=== PATIENT | female | born 1960 | race Caucasian/White ===

== ENCOUNTER → 2020-08-12 12:25 | Outpatient (BNVA) | payer MEDICARE, SELFPAY | PROVIDERS: Referring Provider Family Medicine; Visit Provider Specialist | DX: G50.0 Trigeminal neuralgia (principal); Z87.891 Personal history of nicotine dependence | CPT/HCPCS: G0463 ==

== ENCOUNTER 2020-10-22 11:34 | Outpatient (CLI) | payer MEDICARE, MEDICAID, SELFPAY ==
[2020-10-22 14:39] LABS: Basophils % 0.6 %; Eosinophils # 0.3 10^3/uL (0.0-0.8); Eosinophils % 4.6 %; Hematocrit 38.9 % (37.0-47.0); Hemoglobin 12.4 g/dL (11.5-15.3); Lymphocytes # 1.9 10^3/uL (0.8-4.8); Lymphocytes % 30.5 %; Mean Corpuscular HGB Conc 31.9 g/dL (30.0-36.0); Mean Corpuscular Hemoglobin 30.7 pg (28.0-34.0); Mean Corpuscular Volume 96.3 fL (81-99); Mean Platelet Volume 10.2 fL (7.4-10.4); Monocytes # 0.6 10^3/uL (0.2-0.9); Monocytes % 9.6 %; Neutrophils # 3.46 10^3/uL (1.8-7.7); Neutrophils % 54.4 %; Nucleated Red Blood Cells % 0 %; Platelet Count 291 10^3/cmm (130-400); Red Blood Count 4.04 10^6/uL (4.1-5.3); Red Cell Distribution Width 12.4 % (12.1-15.1); White Blood Count 6.4 10^3/uL (4.0-10.0)
[2020-10-22 14:53] LABS: Alanine Aminotransferase 31 U/L (0-33); Albumin Level 4.4 g/dL (3.5-5.2); Alkaline Phosphatase 113 IU/L (35-105); Aspartate Amino Transferase 36 U/L (0-32); Blood Urea Nitrogen 13 mg/dL (6-20); Calcium 9.8 mg/dL (8.5-10.5); Carbon Dioxide 29 mmol/L (22-29); Chloride 101 mmol/L (98-107); Globulin 2.9 g/dL (1.3-4.6); Glomerular Filtration Rate 127.2 mL/min (90-130); Glucose 98 mg/dL (65-115); Osmolality Calculated 290 mOsm/kg (285-295); Sodium 140 mmol/L (136-145); Total Bilirubin 0.4 mg/dL (0.15-1.2); Total Protein 7.3 g/dL (6.6-8.7)
--- NOTE | 2020-10-24 12:28 | ONC CON_ITS ---
Dr. Marr New Patient Note Patient: Edmar Cifuentes Unit #: [id number]: 1960 Dicatated By: Sidney Marr M.D.Date of Visit: Oct 22, 2020 Onc MED New Patient/Consult Referring Physician: Xavi Cohen Chief Complaint: Breast cancer. History of Present Illness: This is a 59-year-old woman with grade 2 invasive ductal carcinoma of the right breast, stage IA (T2, pN0, M0), ER/AR positive and HER-2/caio negative. Oncotype was high risk, recurrence score 30. She was reported to be premenopausal by hormonal studies. She has a prior history of ductal carcinoma in situ of the right breast for which she underwent lobectomy and adjuvant radiation in 2002 followed by 5 years of adjuvant tamoxifen, completed in 2007. Her surveillance mammogram on 01/02/2020 was BI-RADS 0, incomplete. Findings included a new spiculated mass in the upper outer quadrant of the right breast measuring 3.5 x 1.5 x 1.5 cm. Her diagnostic mammogram was BI-RADS 4, suspicious. Targeted sonography showed a poorly defined hypoechoic mass measuring 1.4 x 1.3 x 1.9 cm at the 11 o'clock position of the right breast. There were no abnormal lymph nodes identified in the right axilla. Biopsy of the lesion on 02/21/2020 showed grade 2 invasive ductal carcinoma. It was reported to be ER positive at 50% and AR positive at 95%. It was negative for overexpression of HER-2/caio with amplification ratio by FISH of 1.18 with 1.77 HER-2 copies/cell. On 03/14/2020 she underwent bilateral mastectomy with right axillary sentinel lymph node biopsy. Pathology on the right breast showed grade 2 invasive ductal carcinoma measuring 2.4 cm in greatest diameter. There was no involvement in 1 axillary sentinel lymph node. Her Oncotype DX showed recurrence score of 30 corresponding to a 19% risk of distant recurrence at 9 years with adjuvant hormonal therapy. The predictive absolute benefit with adjuvant chemotherapy was > 15%. Her postoperative course was complicated by persistent seromas. During that time she also was found to have thyroid nodules, for which she underwent FNA biopsy on 05/14/2020. It apparently was nondiagnostic. She was then able to proceed with adjuvant chemotherapy with dose dense Adriamycin/cyclophosphamide, completing her 4th cycle on 07/10/2020. She then continued with weekly paclitaxel. Her 4th weekly infusion was delayed for 1 week due to mild transaminitis. Her week 5 treatment was then delayed due to an episode of acute paranoid ideation. She was able to complete her week 5 infusion on 09/15/2020. However, she has not received any further treatment due to difficulties with traveling and other social issues. She is seen now for further management of her breast cancer. She complains that she is tired and that she sleeps a lot. She does just very minimal work activity. Her ECOG score is 2. She has good appetite. She has had a weight loss of about 30 pounds, but at least some component of that has been intentional. She has not had fever and she does not complain of hot flashes, but she does have some night sweating. She reports having a lot of allergy related sinus symptoms and she has associated cough. She does not complain of shortness of breath or chest pain. She still has occasional episodes of nausea/vomiting. She gets heartburn if she overeats. She has occasional constipation. She is having urinary frequency and nocturia. She has fairly longstanding musculoskeletal pain. The most significant is in her fingers, wrists, knees, ankles, and feet. She sometimes has headache. She occasionally has dizziness. She has neuropathy in her hands and feet. She has posttraumatic stress syndrome and she has anxiety and depression. Past Medical History: Ms. Cifuentes's medical history consists of anxiety/depression, [place] syndrome, fibromyalgia, gastroesophageal reflux disease, hyperlipidemia, hypertension, nephrolithiasis, osteoporosis, peripheral neuropathy, PTSD, trigeminal neuralgia, and vitamin D deficiency. Past Surgical History: Ms. Cifuentes's surgical/procedural history consists of section in 1982, 1985, and 1986, FNA biopsy of thyroid nodule in 2019, bilateral mastectomy with right axillary sentinel lymph node biopsy in 2019, cholecystectomy in 2012, surgery for kidney stone removal in 2010, left breast lumpectomy in 2003, right breast lumpectomy for DCIS in 2002, and hysterectomy with unilateral oophorectomy in 1987. Medications: hydroCHLOROthiazide 1 (25 mg) Tablet Oral daily, Lopressor 1 (50 mg) Tablet Oral daily, Mouthwash Compounding Base Liquid Oral, Sertraline HCl 1 (50 mg) Tablet Oral daily, Simvastatin 1 (20 mg) Tablet Oral daily, Zofran 1 (8 mg) Tablet Oral q 6 hours. Allergies: Benicar HCT, busPIRone HCl, CeleXA, Cipro, clonazePAM, Codeine Sulfate, Cymbalta, Dexilant, Diclofenac, Dilantin, Elavil, Evista, latex, milk, Neurontin, NIFEdipine, Penicillins, Percocet, Prochlorperazine Maleate, Reglan, Sulfa Antibiotics, traZODone HCl, Voltaren, and Zithromax. Social History: Ms. Cifuentes is and she is a disabled. Ms. Cifuentes has never smoked. She has no history of drinking. She is a non-smoker. She has only rare alcohol use. Family History: Ms. Cifuentes's mother at age 49: Breast Cancer. Ms. Cifuentes's father at age 87: Unknown Cancer. Ms. Cifuentes has 1 brother who is : breast cancer. She has 1 sister who is : breast cancer. Father at age 87, reportedly of breast cancer. Mother of breast cancer at age 49. A brother and his twin sister both of breast cancer, he at age 33 and she at age 30. She indicates that on her mother side of the family there have been 65 deaths to breast cancer spanning 5 generations. She has 3 children, ages 34, 35, and 37 who are all still in good health. None have had genetic screening yet. Review Of Symptoms: Constitutional - She has been feeling very tired. She says she sleeps a lot. She is able to do only minimal work activity. Her appetite is been okay, but she has had a 30 pound weight loss, at least some of which has been intentional. She has not had fever. She does not complain of hot flashes, but she does have some sweating at night. ECOG score is 2, Eyes - No change in vision, ENMT - No hearing loss or tinnitus. She has some allergy related sinus symptoms. No mouth sores. No sore throat or difficulty swallowing, Hematologic/Lymphatic - She has easy bruising, Respiratory - No shortness of breath. She has cough, also attributable to allergies. No pleuritic pain or hemoptysis, Cardiovascular - No angina pain. No palpitations, Gastrointestinal - She still has occasional nausea and vomiting. She has heartburn with overeating. She has occasional constipation. No blood in the stool or black stools, Genitourinary (F) - No dysuria or hematuria. She has urinary frequency and nocturia. No urgency or incontinence, Musculoskeletal - She has had ongoing problems with musculoskeletal pain for the past 10 years. The most significant is her fingers, wrists, knees, ankles, and feet, Integumentary - No skin rash or other skin problems, Neurologic - She sometimes has headache. She occasionally has dizziness. She has neuropathy in her hands and more so in her feet, Psychiatric - She has posttraumatic stress disorder. She has anxiety and depression. She does not sleep well at night. Vital Signs: Performed on Oct 22, 2020 13:17: 9, 9, 35.02 (HIGH), 2.07 sq.m, 66 in, 93 % (LOW), 67 /min, 18 /min, 115/72 mm(hg), 99.7 F (HIGH), and 217 lbs (HIGH). Physical Examination: Constitutional - She looks pretty good generally, Eyes - Sclerae nonicteric. Conjunctivae clear, ENMT - No lesions noted in the oral cavity, Neck - No mass or thyromegaly, Hematologic/Lymphatic - No cervical or clavicular adenopathy, Respiratory - Lungs are clear with good air movement bilaterally, Cardiovascular - Heart rhythm is regular. There is no murmur, gallop, or rub noted, Breasts - The mastectomy incisions appear well-healed bilaterally. There appears to be some small residual fluid collection in the medial aspect of the left mastectomy incision. There are no chest wall lesions noted. There is no axillary adenopathy, Abdomen - Soft and non-tender. Liver and spleen are not enlarged. There is no abdominal mass or ascites noted and there is no inguinal adenopathy, Back/Spine - No spine or CVA tenderness noted, Extremities - No edema. Pedal pulses are palpable bilaterally, Integumentary - No rashes. No suspicious skin lesions noted, Neurologic - No focal neurologic deficits noted. Problem List: 1. Grade 2 invasive ductal carcinoma of the right breast, stage IA (T2, pN0, M0), ER/AR positive and HER-2/caio negative. Oncotype was high risk, recurrence score 30. She was reported to be premenopausal by hormonal studies. She underwent bilateral mastectomy and right axillary sentinel lymph node biopsy on 03/14/2020. 2. She had history of ductal carcinoma in situ of the right breast, treated in 2002 with lumpectomy and adjuvant radiation followed by 5 years of adjuvant hormonal therapy with tamoxifen, completed in 2007. 3. 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 4. She was found to have a suspicious thyroid nodule. Initial FNA biopsy was nondiagnostic. 5. Hypertension. 6. Hyperlipidemia. 7. GERD. 8. Peripheral neuropathy. 9. Trigeminal neuralgia. 10. Fibromyalgia. 11. Osteoporosis. 12. Vitamin D deficiency. 13. History of nephrolithiasis. 14. PTSD with anxiety and depression. Problems Addressed with this Encounter and Plan: 1. Patient with grade 2 invasive ductal carcinoma of the right breast, stage IA (T2, pN0, M0), ER/AR positive and HER-2/caio negative. Oncotype was high risk, recurrence score 30. She was reported to be premenopausal by hormonal studies. She underwent bilateral mastectomy and right axillary sentinel lymph node biopsy on 03/14/2020. Her postoperative course was complicated by recurrent seroma. With high risk Oncotype DX, she then began adjuvant chemotherapy with dose dense Adriamycin/cyclophosphamide. She completed her 4 cycles from 05/23/2020 through 07/10/2020. She began her first of 12 planned weekly cycles of paclitaxel on 07/29/2020. Her week for treatment was delayed due to transaminitis. Her week 5 treatment, completed on 09/15/2020, had been delayed due to an episode of acute paranoia. She has not had any further chemotherapy due to difficulty with traveling another social issues. Despite the delays in her treatment, she is interested in completing her full course of chemotherapy. As her toxicity has been acceptable, she will return tomorrow for her week 6 paclitaxel. It will be administered at the same dosage. She will then continue treatment weekly. I will address the issue of her adjuvant endocrine therapy when she has completed chemotherapy. 2. She was found to have a suspicious thyroid nodule. The initial FNA biopsy was nondiagnostic. It will require ongoing follow-up. Signed By: Sidney Marr M.D. <<Signature on File>>
== END 2020-10-22 11:35 | disposition home or self-care (01) ==
PROVIDERS: Visit Provider Internal Medicine Medical Oncology
DX: C50.411 Malignant neoplasm of upper-outer quadrant of right female breast (principal); Z17.0 Estrogen receptor positive status [ER+]; Z79.899 Other long term (current) drug therapy; E04.1 Nontoxic single thyroid nodule; Z90.13 Acquired absence of bilateral breasts and nipples; Q85.8 Other phakomatoses, not elsewhere classified; I10 Essential (primary) hypertension; E78.5 Hyperlipidemia, unspecified; K21.9 Gastro-esophageal reflux disease without esophagitis; Z86.000 Personal history of in-situ neoplasm of breast
CPT/HCPCS: 36415; 80053; 85025; 99205

== ENCOUNTER 2020-11-13 11:30 | Outpatient (RCR) | payer MEDICARE, MEDICAID, SELFPAY ==
[2020-10-23] MEDS: sodium chloride 0.9% 250 ML 75 ML IV (08:27)
[2020-10-23] MEDS: famotidine 20 mg/2 mL INJ IVP (08:27)
[2020-10-23] MEDS: ondansetron 2 mg/ML SDV 2 mL 8 MG IV (08:29)
[2020-10-23] MEDS: acetaminophen 325 mg Tablet 650 MG PO (08:29)
[2020-10-23] MEDS: diphenhydrAMINE 50 mg/mL SDV 1mL 25 MG IV (08:32)
[2020-10-23] MEDS: sodium chloride 0.9% (100 ml) 100 ML 400 ML (08:32)
[2020-10-23] MEDS: fosaprepitant 150 MG in sodium chloride 0.9% 150 ML 300 MG IV (09:25)
[2020-10-30 12:56] LABS: Basophils % 0.2 %; Eosinophils % 0.2 %; Hematocrit 37.9 % (37.0-47.0); Lymphocytes # 0.5 10^3/uL (0.8-4.8); Lymphocytes % 10.4 %; Mean Corpuscular HGB Conc 31.7 g/dL (30.0-36.0); Mean Corpuscular Volume 94.8 fL (81-99); Mean Platelet Volume 11.1 fL (7.4-10.4); Monocytes % 0.6 %; Neutrophils # 4.25 10^3/uL (1.8-7.7); Neutrophils % 88.2 %; Nucleated Red Blood Cells % 0 %; Platelet Count 269 10^3/cmm (130-400); Red Cell Distribution Width 12.2 % (12.1-15.1); White Blood Count 4.8 10^3/uL (4.0-10.0)
[2020-10-30 13:25] LABS: Alanine Aminotransferase 27 U/L (0-33); Albumin Level 4.6 g/dL (3.5-5.2); Alkaline Phosphatase 109 IU/L (35-105); Aspartate Amino Transferase 24 U/L (0-32); Blood Urea Nitrogen 13 mg/dL (6-20); Calcium 9.3 mg/dL (8.5-10.5); Carbon Dioxide 26 mmol/L (22-29); Chloride 101 mmol/L (98-107); Globulin 2.7 g/dL (1.3-4.6); Glomerular Filtration Rate 127.2 mL/min (90-130); Glucose 157 mg/dL (65-115); Osmolality Calculated 293 mOsm/kg (285-295); Sodium 140 mmol/L (136-145); Total Bilirubin 0.2 mg/dL (0.15-1.2); Total Protein 7.3 g/dL (6.6-8.7)
[2020-10-30] MEDS: acetaminophen 325 mg Tablet 650 MG PO (15:33)
[2020-10-30] MEDS: sodium chloride 0.9% 250 ML 75 ML IV (15:34)
[2020-10-30] MEDS: diphenhydrAMINE 50 mg/mL SDV 1mL 25 MG IVP (15:34)
[2020-10-30] MEDS: ondansetron 2 mg/ML SDV 2 mL 8 MG IVP (15:36)
[2020-10-30] MEDS: famotidine 20 mg/2 mL INJ IVP (15:38)
--- NOTE | 2020-11-10 01:00 | ONC FU_ITS ---
[facility] Patient Note Patient: Edmar Cifuentes Unit #: [id number]: [id number] Dictated By: Romeo BurdickDate of Visit: Oct 30, 2020 Onc MED Follow-Up/Prog Note Chief Complaint: Breast cancer. History of Present Illness: Ms Cifuentes is a 59-year-old woman with grade 2 invasive ductal carcinoma of the right breast, stage IA (T2, pN0, M0), ER/ID positive and HER-2/caio negative. Oncotype was high risk, recurrence score 30. She was reported to be premenopausal by hormonal studies. She has a prior history of ductal carcinoma in situ of the right breast for which she underwent lobectomy and adjuvant radiation in 2002 followed by 5 years of adjuvant tamoxifen, completed in 2007. Her surveillance mammogram on 01/02/2020 was BI-RADS 0, incomplete. Findings included a new spiculated mass in the upper outer quadrant of the right breast measuring 3.5 x 1.5 x 1.5 cm. Her diagnostic mammogram was BI-RADS 4, suspicious. Targeted sonography showed a poorly defined hypoechoic mass measuring 1.4 x 1.3 x 1.9 cm at the 11 o'clock position of the right breast. There were no abnormal lymph nodes identified in the right axilla. Biopsy of the lesion on 02/21/2020 showed grade 2 invasive ductal carcinoma. It was reported to be ER positive at 50% and ID positive at 95%. It was negative for overexpression of HER-2/caio with amplification ratio by FISH of 1.18 with 1.77 HER-2 copies/cell. On 03/14/2020 she underwent bilateral mastectomy with right axillary sentinel lymph node biopsy. Pathology on the right breast showed grade 2 invasive ductal carcinoma measuring 2.4 cm in greatest diameter. There was no involvement in 1 axillary sentinel lymph node. Her Oncotype DX showed recurrence score of 30 corresponding to a 19% risk of distant recurrence at 9 years with adjuvant hormonal therapy. The predictive absolute benefit with adjuvant chemotherapy was > 15%. Her postoperative course was complicated by persistent seromas. During that time she also was found to have thyroid nodules, for which she underwent FNA biopsy on 05/14/2020. It apparently was nondiagnostic. She was then able to proceed with adjuvant chemotherapy with dose dense Adriamycin/cyclophosphamide, completing her 4th cycle on 07/10/2020. She then continued with weekly paclitaxel. Her 4th weekly infusion was delayed for 1 week due to mild transaminitis. Her week 5 treatment was then delayed due to an episode of acute paranoid ideation. She was able to complete her week 5 infusion on 09/15/2020. However, she has not received any further treatment due to difficulties with traveling and other social issues. She was seen by Dr Marr for further management of her breast cancer. She has neuropathy in her hands and feet. She has posttraumatic stress syndrome and she has anxiety and depression. Those diagnoses are controlled at present. Ms Cifuentes resumed cycle 6 paclitaxel on 10/23/2020. Her plan is to complete a total of 12 weekly treatments. She has tolerated it well. She denies any nausea or vomiting. She has had no fever or chills. She states her peripheral neuropathy is stable. She denies any diarrhea or constipation. She denies any urinary concerns. She states her breathing is good. She has occasional shortness of breath but is no worse than what it has been. She denies any cough or hemoptysis. She denies any new or worsening hot flashes. She states that she is eating good and her energy is better. She did complain of a nodule in her left chest wall lateral almost axillary area. She states this is relatively new over the last week or so and she feels it is getting bigger. It is slightly tender to touch but is not been red or warm. Has had no drainage. She states overall she feels good. She denies any problems with her PTSD or anxiety/depression. She is very jovial today. Her ECOG is 1. Past Medical History: Anxiety/depression Ellen syndrome Fibromyalgia Gastroesophageal reflux disease Hyperlipidemia Hypertension Nephrolithiasis Osteoporosis Peripheral neuropathy PTSD Trigeminal neuralgia Vitamin D deficiency Past Surgical History: section in 1982, 1985, and 1986 FNA biopsy of thyroid nodule in 2019 Bilateral mastectomy with right axillary sentinel lymph node biopsy in 2019 Cholecystectomy in 2012 Surgery for kidney stone removal in 2010 Left breast lumpectomy in 2003 Right breast lumpectomy for DCIS in 2002 Hysterectomy with unilateral oophorectomy in 1987 Allergies: Benicar HCT, busPIRone HCl, CeleXA, Cipro, clonazePAM, Codeine Sulfate, Cymbalta, Dexilant, Diclofenac, Dilantin, Elavil, Evista, latex, milk, Neurontin, NIFEdipine, Penicillins, Percocet, Prochlorperazine Maleate, Reglan, Sulfa Antibiotics, traZODone HCl, Voltaren, and Zithromax. Medications: hydroCHLOROthiazide 1 (25 mg) Tablet Oral daily Lopressor 1 (50 mg) Tablet Oral daily Mouthwash Compounding Base Liquid Oral Sertraline HCl 1 (50 mg) Tablet Oral daily Simvastatin 1 (20 mg) Tablet Oral daily Topamax 1 Tablet (of 50 mg) Oral b.i.d. Zofran 1 (8 mg) Tablet Oral q 6 hours Family History: Ms. Cifuentes's mother at age 49: Breast Cancer. Ms. Cifuentes's father at age 87: Unknown Cancer. Ms. Cifuentes has 1 brother who is : breast cancer. She has 1 sister who is : breast cancer. Father at age 87, reportedly of breast cancer. Mother of breast cancer at age 49. A brother and his twin sister both of breast cancer, he at age 33 and she at age 30. She indicates that on her mother side of the family there have been 65 deaths to breast cancer spanning 5 generations. She has 3 children, ages 34, 35, and 37 who are all still in good health. None have had genetic screening yet. Social History: Ms. Cifuentes is and she is a disabled. Ms. Cifuentes has never smoked. She has no history of drinking. She is a non-smoker. She has only rare alcohol use. Review Of Symptoms: Vital Signs: Performed on Oct 30, 2020 17:26 Height - 66.00 in Temperature - 97.9 F (LOW) Pulse - 93 /min Respiration - 18 /min BP - 120/71 mm(hg) O2 Sat - 96 % Performed on Oct 30, 2020 14:33 Height - 66.00 in Weight - 218.0 lbs (HIGH) BSA - 2.07 sq.m BMI - 35.19 (HIGH) Temperature - 97.0 F (LOW) Pulse - 92 /min Respiration - 18 /min BP - 105/70 mm(hg) O2 Sat - 96 % Pain - 9,1 - No physically strenuous activity, but ambulatory and able to carry out light or sedentary work (e.g. office work, light house work). (ECOG) Physical Examination: Breasts Left chest wall-lateral/near axillary line is an approximately 1.5 cm semifirm nodule. It is not red or warm. However it is slightly tender to touch. It feels to be from more than a random cyst at this point. Laboratory:Test performed on Oct 30, 2020 11:20 Sodium 140 mmol/L Potassium 4.0 mmol/L Chloride 101 mmol/L CO2 26 mmol/L Anion Gap 17.0 BUN 13 mg/dL Creatinine 0.5 mg/dL Cr Clearance (Est) 192.9000 mL/min eGFR 127.2 mL/min Glucose 157 mg/dL Osmolality - Calculated 293 mOsm/kg Calcium 9.3 mg/dL Protein, Total 7.3 g/dL Albumin 4.6 g/dL Globulin 2.7 g/dL Bilirubin, Total 0.2 mg/dL ALT (SGPT) 27 U/L AST (SGOT) 24 U/L Alkaline Phosphatase 109 IU/L WBC 4.8 10 3/uL RBC 4.00 10 6/uL HGB 12.0 g/dL HCT 37.9 % MCV 94.8 fL MCH 30.0 pg MCHC 31.7 g/dL RDW 12.2 % Platelet Count 269 10 3/cmm MPV 11.1 fL Neutrophils 4.25 10 3/uL Lymphocytes 0.5 10 3/uL Monocytes 0.0 10 3/uL Eosinophils 0.0 10 3/uL Basophils 0.0 10 3/uL Neutrophil % 88.2 % Lymphocyte % 10.4 % Monocyte % 0.6 % Eosinophil % 0.2 % Basophils % 0.2 % NRBC % 0 % Impression: 1. Grade 2 invasive ductal carcinoma of the right breast, stage IA (T2, pN0, M0), ER/ID positive and HER-2/caio negative. Oncotype was high risk, recurrence score 30. She was reported to be premenopausal by hormonal studies. She underwent bilateral mastectomy and right axillary sentinel lymph node biopsy on 03/14/2020. 2. She had history of ductal carcinoma in situ of the right breast, treated in 2002 with lumpectomy and adjuvant radiation followed by 5 years of adjuvant hormonal therapy with tamoxifen, completed in 2007. 3. 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 4. She was found to have a suspicious thyroid nodule. Initial FNA biopsy was nondiagnostic. 5. Hypertension. 6. Hyperlipidemia. 7. GERD. 8. Peripheral neuropathy. 9. Trigeminal neuralgia. 10. Fibromyalgia. 11. Osteoporosis. 12. Vitamin D deficiency. 13. History of nephrolithiasis. 14. PTSD with anxiety and depression. Plan: 1. Patient with grade 2 invasive ductal carcinoma of the right breast, stage IA (T2, pN0, M0), ER/ID positive and HER-2/caio negative. Oncotype was high risk, recurrence score 30. She was reported to be premenopausal by hormonal studies. She underwent bilateral mastectomy and right axillary sentinel lymph node biopsy on 03/14/2020. Her postoperative course was complicated by recurrent seroma. With high risk Oncotype DX, she then began adjuvant chemotherapy with dose dense Adriamycin/cyclophosphamide. She completed her 4 cycles from 05/23/2020 through 07/10/2020. She began her first of 12 planned weekly cycles of paclitaxel on 07/29/2020. Her week for treatment was delayed due to transaminitis. Her week 5 treatment, completed on 09/15/2020, had been delayed due to an episode of acute paranoia. She has not had any further chemotherapy due to difficulty with traveling another social issues. Despite the delays in her treatment, she is interested in completing her full course of chemotherapy. As her toxicity has been acceptable, she resumed her week 6 paclitaxel treatment on 10/23/2020. The issue of adjuvant endocrine therapy will be addressed when she is completed chemotherapy. A. Proceed with week 7 paclitaxel at current dose. B. Premed steroid compliance confirmed. C. Today's labs reviewed in detail discussed with Ms. Avilezand a copy was given to her. WBC 4.8, hemoglobin 12.0, platelets are 69,000, ANC is 40-50. Potassium 4.0 random glucose 157 creatinine 0.5 LFTs are normal. 2. She was found to have a suspicious thyroid nodule. The initial FNA biopsy was nondiagnostic. It will require ongoing follow-up. 3. Follow-up plan A. We will plan to see her back weekly with CBC CMP for her weekly paclitaxel treatments. B. She is encouraged to take her premed steroids for each treatment. C. Mrs. Cifuentes was encouraged to contact us in the interim should questions or problems arise. 4. New Problem: 1.5 cm nodule left chestwal A. She did have a left chest wall/axillary lateral area nodule approximate 1.5 cm in diameter which she states is getting larger. I have asked for ultrasound imaging of this with her next visit. Signed By: Romeo Burdick-, AOCNP Sidney Marr MD <<Signature on File>>
== END 2020-11-21 23:59 | disposition home or self-care (01) ==
LOC: ONCMED 11:30
PROVIDERS: Visit Provider Nurse Practitioner
DX: Z51.11 Encounter for antineoplastic chemotherapy (principal); C50.411 Malignant neoplasm of upper-outer quadrant of right female breast; Z17.0 Estrogen receptor positive status [ER+]; F41.9 Anxiety disorder, unspecified; F32.9 Major depressive disorder, single episode, unspecified; Q85.8 Other phakomatoses, not elsewhere classified; M79.7 Fibromyalgia; K21.9 Gastro-esophageal reflux disease without esophagitis; E78.5 Hyperlipidemia, unspecified; I10 Essential (primary) hypertension; M81.0 Age-related osteoporosis without current pathological fracture; G62.0 Drug-induced polyneuropathy; T45.1X5A Adverse effect of antineoplastic and immunosuppressive drugs, initial encounter; F43.10 Post-traumatic stress disorder, unspecified; G50.0 Trigeminal neuralgia; E55.9 Vitamin D deficiency, unspecified; Z79.899 Other long term (current) drug therapy
CPT/HCPCS: 80053; 85025; 96367; 96375; 96413; 99215; J1100; J1200; J1453; J2405; J3490; J7050; J9267